=== PATIENT | female | born 1980 | race Caucasian/White ===

== ENCOUNTER 2018-03-18 12:39 | Emergency (ER) | payer OTHER ==
[~2018-03-18] VITALS: Ht 160 cm; Wt 54.4 kg
[2018-03-18] MEDS ORDERED: VENTOLIN HFA INH W/DOS CTR 200 (12:59)
[2018-03-18] MEDS ORDERED: NEOMY/BACITRA/POLYMYXIN B OINT UD PACKET TP ONE ×2 (13:11→13:15)
--- NOTE | 2018-03-18 13:18 | NUR ---
PATIENT STATS HER OWN DOG BIT HER HAND. WOUND IS CLOSED, ALITTLE SWOLLEN BUT NOT RED OR HOT. DC, RX AND FOLLOW UP INSTRUCTIONS GIVEN AND EXPLAINED TO PATIENT WHO STATES SHE UNDERSTANDS ALL INSTRUCTIONS...
== END 2018-03-18 13:21 | disposition home or self-care (01) ==
LOC: ER 12:39
DX: S61.452A Open bite of left hand, initial encounter (principal); Z88.7 Allergy status to serum and vaccine; W54.0XXA Bitten by dog, initial encounter; Y93.89 Activity, other specified; Y92.89 Other specified places as the place of occurrence of the external cause; Y99.8 Other external cause status
CPT/HCPCS: A4663

== ENCOUNTER 2018-08-05 16:50 | Emergency (ER) | payer OTHER ==
[~2018-08-05] VITALS: Ht 160 cm; Wt 54.0 kg
[~2018-08-05 16:50] MED LIST: VENTOLIN HFA INH W/DOS CTR 200
--- NOTE | 2018-08-05 17:10 | NUR ---
PT IS IN ROOM #1A. DR CRAWFORD EVALUATED THE PT.
--- NOTE | 2018-08-05 17:38 | NUR ---
PT WAS D/C'd TO HOME. D/C INSTRUCTIONS GIVEN TO THE PT.
[2018-08-05 17:39] VITALS: BP 132/72
== END 2018-08-05 17:40 | disposition home or self-care (01) ==
LOC: ER 16:51
DX: J45.901 Unspecified asthma with (acute) exacerbation (principal); Z88.7 Allergy status to serum and vaccine; Z79.899 Other long term (current) drug therapy
CPT/HCPCS: A4663

== ENCOUNTER 2019-04-20 19:56 | Emergency (ER) | END 2019-04-20 20:57 | disposition home or self-care (01) | DX: S00.03XA Contusion of scalp, initial encounter (principal); G44.209 Tension-type headache, unspecified, not intractable; J45.909 Unspecified asthma, uncomplicated; Z88.2 Allergy status to sulfonamides; Z88.7 Allergy status to serum and vaccine; Z79.899 Other long term (current) drug therapy; W22.8XXA Striking against or struck by other objects, initial encounter; Y93.89 Activity, other specified; Y92.89 Other specified places as the place of occurrence of the external cause; Y99.8 Other external cause status ==